=== PATIENT | male | born 2000 | race African-American/Black ===

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

== ENCOUNTER 2019-05-02 19:22 | Emergency (ER) | payer SELFPAY ==
[~2019-05-02] VITALS: Ht 180.3 cm; Wt 76.2 kg
[~2019-05-02 19:22] MED LIST changes: +LOMOTIL2.5 MG PO; +PHENERGAN25 MG/TAB PO
[2019-05-02 20:40] VITALS: BP 141/74
== END 2019-05-02 20:40 | disposition home or self-care (01) | DRG 866 ==
LOC: ED 19:22
DX: B34.9 Viral infection, unspecified (principal); F17.200 Nicotine dependence, unspecified, uncomplicated

== ENCOUNTER 2019-07-23 | Emergency (ER) | payer SELFPAY ==
[2019-07-23 16:14] LABS: HEMOGLOBIN 14.9 g/dl (14.0-18.0); MEAN CELL VOLUME 80.1 fL CALC (80.0-100.0); MEAN CORPUSCULAR HGB 26.5 pG CALC (26.0-32.0); MEAN CORPUSCULAR HGB CONC 33.1 g/L CALC (32.0-36.0); NEUT# 1.8 thou/uL (1.82-7.42); RED BLOOD COUNT 5.62 mill/uL (4.70-6.10)
[2019-07-23 16:15] LABS: URINE BILIRUBIN - DIPSTICK NEGATIVE (NEGATIVE); URINE BLOOD DIPSTICK NEGATIVE (NEGATIVE); URINE COLOR YELLOW; URINE GLUCOSE - DIPSTICK NEGATIVE (NEGATIVE); URINE KETONE NEGATIVE (NEGATIVE); URINE LEUK ESTERASE NEGATIVE (NEGATIVE); URINE NITRITE - DIPSTICK NEGATIVE (Negative); URINE PH 7.5 (4.5-8.0); URINE PROTEIN - DIPSTICK NEGATIVE (NEG-TRACE); URINE SPECIFIC GRAVITY <=1.005; URINE UROBILINOGEN - DIPSTICK 0.2 E.U./dL (0.2)
[2019-07-23 16:35] LABS: ALBUMIN 4.5 g/dL (3.2-5.0); ALKALINE PHOSPHATASE 74 u/l (38-126); ANION GAP 12 (6-22 (CALC)); BUN 7 mg/dL (9-20); BUN/CREATININE RATIO 6 (12-20 (CALC)); CARBON DIOXIDE 27 mmol/l (22-30); CHLORIDE 101 mmol/l (95-108); CREATININE 1.1 mg/dL (0.7-1.3); GFR > 60 ML/MIN (>=60 (CALC)); GFR FOR AFR.AMER. > 60 ML/MIN (>=60 (CALC)); LIPASE 49 u/l (23-300); SGOT/AST 28 u/l (17-59); SODIUM 136 mmol/l (137-146)
[2019-07-23 16:38] LABS: BILIRUBIN, TOTAL 0.6 mg/dL (0.0-1.4)
[2019-07-23] MEDS ORDERED: PEPCID20 MG PO (18:33)
[2019-07-23] MEDS ORDERED: ZOFRAN4 MG/TAB PO (18:33)
== END 2019-07-23 18:48 | disposition home or self-care (01) | DRG 392 ==
DX: R10.84 Generalized abdominal pain (principal); R11.2 Nausea with vomiting, unspecified; F17.200 Nicotine dependence, unspecified, uncomplicated
CPT/HCPCS: Q9967; S0164

== ENCOUNTER 2019-07-24 | Emergency (ER) | payer SELFPAY ==
[~2019-07-24] MED LIST changes: +PEPCID20 MG PO; +ZOFRAN4 MG/TAB PO
== END 2019-07-24 18:22 | disposition home or self-care (01) | DRG 392 ==
DX: K52.9 Noninfective gastroenteritis and colitis, unspecified (principal); F17.200 Nicotine dependence, unspecified, uncomplicated; T50.906A Underdosing of unspecified drugs, medicaments and biological substances, initial encounter; Z91.128 Patient's intentional underdosing of medication regimen for other reason

== ENCOUNTER 2020-11-25 09:57 | Observation (INO) | payer OTHER ==
[~2020-11-25] VITALS: Ht 182.9 cm; Wt 70.0 kg
--- NOTE | 2020-11-25 10:34 | NUR ---
DEPUTY REMAINS BEDSIDE WITH PATIENT, PATIENT REMAINS HANDCUFFED
[2020-11-25 10:51] LABS: HEMATOCRIT 44.6 % (39.0-50.0); HEMOGLOBIN 15.4 g/dl (14.0-18.0); IMMATURE GRANULOCYTES 0.2 % (0.0-5.0); MEAN CELL VOLUME 77.3 fL CALC (80.0-100.0); MEAN CORPUSCULAR HGB 26.7 pG CALC (26.0-32.0); MEAN CORPUSCULAR HGB CONC 34.5 g/dL CAL (32.0-36.0); NEUT# 3.38 thou/uL (1.82-7.42); RED BLOOD COUNT 5.77 mill/uL (4.70-6.10); RED CELL DISTRI WIDTH 12.9 % (11.5-15.5)
[2020-11-25 11:07] LABS: ALKALINE PHOSPHATASE 77 u/l (38-126); BILIRUBIN, TOTAL 0.6 mg/dL (0.0-1.4); BUN 7 mg/dL (9-20); BUN/CREATININE RATIO 6 (12-20 (CALC)); CHLORIDE 101 mmol/l (95-108); CREATININE 1.2 mg/dL (0.7-1.3); ETHYL ALCOHOL 0 mg/dl (0-30); GFR > 60 ML/MIN (>=60 (CALC)); GFR FOR AFR.AMER. > 60 ML/MIN (>=60 (CALC)); LIPASE 51 u/l (23-300); POTASSIUM 3.8 mmol/l (3.5-5.1); SODIUM 135 mmol/l (137-146); TOTAL PROTEIN 9.2 g/dL (6.3-8.2)
[2020-11-25 11:25] LABS: ANION GAP 21 (6-22 (CALC)); CARBON DIOXIDE 17 mmol/l (22-30); CPK 2160 u/l (52-200); SGOT/AST 70 u/l (17-59)
[2020-11-25 13:29] LABS: URINE BILIRUBIN - DIPSTICK NEGATIVE (NEGATIVE); URINE BLOOD DIPSTICK TRACE-INTACT (NEGATIVE); URINE COLOR YELLOW; URINE GLUCOSE - DIPSTICK NEGATIVE (NEGATIVE); URINE KETONE TRACE mg/dL (NEGATIVE); URINE LEUK ESTERASE NEGATIVE (NEGATIVE); URINE PH 6.5 (4.5-8.0); URINE PROTEIN - DIPSTICK TRACE mg/dL (NEG-TRACE); URINE UROBILINOGEN - DIPSTICK 0.2 E.U./dL (0.2)
[2020-11-25 13:31] LABS: URINE NITRITE - DIPSTICK NEGATIVE (Negative)
--- NOTE | 2020-11-25 14:55 | NUR ---
REPORT RECEIVED FROM SONI WHITEHEAD
--- NOTE | 2020-11-25 14:56 | NUR ---
REPORT CALLED TO FLOOR NURSE
--- NOTE | 2020-11-25 15:01 | NUR ---
PT ARRIVED TO MED/SURG ROOM 267 IN STABLE CONDITION VIA STRETCHER ACCOMPANIED BY SONI WHITEHEAD AND GUARD;PT AMBULATED TO BEDSIDE WITH A STEADY GAIT;WT AND VS OBTAINED BY ANITHA SCHRADER;PT A&O X3,ORIENTED TO ROOM AND CALL LIGHT SYSTEM;PT REPORTS RUNNING FROM THE POLICE AND HITTING A FENCE,THEN FEELING WEAK;PT REPORTS NECK PAIN RATING 5/10 ON THE PAIN SCALE ,PAIN SCALE AND REPORTING EDUCATED;ASSESSMENT COMPLETED;RESPIRATIONS EVEN AND UNLABORED ON RA,CLEAR LUNG SOUNDS;ABDOMEN SOFT ON PALPATION AND ACTIVE IN ALL 4 QUADRANTS,LAST BM 11/23/20;STRONG PEDAL PULSES WITH ANKLES SHACKLED TO THE BED;TELE MONITORING IN PLACE;#20G TO RAC FLUSHED AND PATENT,NS STARTED AT THIS TIME @ 150ML/HR;ALLERGY BAND APPLIED TO LEFT ARM;PT DENIES ANY ADDITIONAL NEEDS AND IS ENCOURAGED TO CALL FOR ASSISTANCE IF NEEDED;FALL PRECAUTIONS IN PLACE WITH BED IN THE LOWEST POSITION AND CALL LIGHT IN REACH;WILL CONTINUE TO MONITOR
[2020-11-25 15:08] VITALS: BP 152/95
--- NOTE | 2020-11-25 16:20 | NUR ---
PT RESTING IN SEMI FOWLERS POSITION WITH GUARD AT BEDSIDE;RESPIRATIONS EVEN AND UNLABORED ON RA;PT DENIES ANY CURRENT PAIN OR DISCOMFORTS;TELE MONITORING IN PLACE;IV SITE PATENT INFUSING NS WITH EASE PER ORDER;PT DENIES ANY ADDITIONAL NEEDS AND IS ENCOURAGED TO CALL FOR ASSISTANCE IF NEEDED;CALL LIGHT IN REACH;WILL CONTINUE TO MONITOR
[2020-11-25 19:06] VITALS: BP 117/69
--- NOTE | 2020-11-25 19:45 | NUR ---
PATIENT RESTING IN BED AT THIS TIME WITH EYES CLOSED. RESPS ARE EVEN AND UNLABORED. SIDERAILS ARE PADDED FOR SEIZURE PRECAUTIONS. TELE MONITOR IN PLACE-LAST READING WAS [id number]. IVF PATENT AND INFUSING VIA RAC AT 150CC/HR. SITE REMAINS HEALTHY AT THIS TIME. OZIEL AT BEDSIDE AND PATIENT LEFT ARM IS SHACKELED TO SIDERAIL. CALL LIGHT IN REACH. WILL CONT TO MONITOR.
--- NOTE | 2020-11-25 21:50 | NUR ---
PATIENT RESTING IN BED AT THIS TIME WITH OZIEL AT BEDSIDE. PATIENT SHACKELED TO BED RAIL WITH LEFT WRIST. PATIENT MEDICATED FOR C/O GENERALIZED/ABD PAIN 5/10 ON PAIN SCALE WITH MOTRIN 600MG PO ORDERED FOR PAIN. IVF NS PATENT AND INFUSING VIA RAC SITE AT 150CC/HR. SITE REMAINS HEALTHY. SIDERAILS PADDED FOR SEIZURE PRECAUTIONS. TELE MONITOR IN PLACE. SAFETY PRECAUTIONS REINFORCED. CALL LIGHT IN REACH. WILL CONT TO MONITOR.
--- NOTE | 2020-11-26 00:03 | NUR ---
PATIENT RESTING IN BED WITH EYES CLOSED. RESPS ARE EVEN AND UNLABORED. TELE MONITOR IN PLACE. IVF PATENT AND INFUSING VIA RAC SITE AT 150CC/HR. OZILE REMAINS AT BEDSIDE. PATIENT REMAINS SHACKELED TO BED RAIL. CALL LIGHT IN REACH. WILL CONT TO MONITOR.
[2020-11-26 00:43] VITALS: BP 105/63
--- NOTE | 2020-11-26 03:57 | NUR ---
PATIENT RESTING IN BED WITH SHEETS OVER HIS HEAD. RESPS ARE EVEN AND UNLABORED. OZIEL REMAINS AT BEDSIDE AND PATIENT REMAINS SHACKELED TO THE SIDERAIL. IVF PATENT AND INFUSING VIA RAC AT 150CC/HR. CALL LIGHT IN REACH. WILL CONT TO MONITOR.
[2020-11-26 04:35] VITALS: BP 122/68
[2020-11-26 04:58] LABS: HEMATOCRIT 40.9 % (39.0-50.0); HEMOGLOBIN 13.5 g/dl (14.0-18.0); MEAN CELL VOLUME 81.2 fL CALC (80.0-100.0); MEAN CORPUSCULAR HGB 26.8 pG CALC (26.0-32.0); RED BLOOD COUNT 5.04 mill/uL (4.70-6.10); RED CELL DISTRI WIDTH 13.2 % (11.5-15.5)
[2020-11-26 05:17] LABS: ANION GAP 8 (6-22 (CALC)); BUN 7 mg/dL (9-20); BUN/CREATININE RATIO 7 (12-20 (CALC)); CARBON DIOXIDE 23 mmol/l (22-30); CHLORIDE 110 mmol/l (95-108); CPK 872 u/l (52-200); CREATININE 1.1 mg/dL (0.7-1.3); GFR > 60 ML/MIN (>=60 (CALC)); GFR FOR AFR.AMER. > 60 ML/MIN (>=60 (CALC)); MAGNESIUM 1.9 mg/dL (1.6-2.3); SODIUM 137 mmol/l (137-146)
--- NOTE | 2020-11-26 07:00 | NUR ---
RECIEVED REPORT FROM SONI SHERIDAN
--- NOTE | 2020-11-26 07:13 | NUR ---
Chart reviewed. I agree with CP for the current POC and no other needs are identified
--- NOTE | 2020-11-26 08:01 | NUR ---
PT SLEEPING IN SEMI FOWLERS. PT AWAKENS TO SPEECH. PT IS A/O X3. ASSESSMENT AND VITALS COMPLETED. BP 120/72, HR 48, O2 100% ON ROOM AIR. RESPIRATIONS ARE EVEN AND UNLABORED WITH NO DISTRESS NOTED. LUNG SOUNDS ARE CLEAR. HEART RHYTHM IS NORMAL WITH TELE IN PLACE, SB PER ER MONITORING. BOWEL SOUNDS ARE ACTIVE. RADIAL AND PEDAL PULSES STRONG. #20G RAC INFUSING WITH IVF PER ORDER, SITE REMAINS HEALTHY AND PATENT. SKIN INTACT. LEFT WRIST SHACKLED TO BED. PT COMPLAINS OF 7/10 NECK PAIN, PT MEDICATED PER EMAR. PT DENIES OF ANY ADDITIONAL NEEDS AT THIS TIME. ALL SAFETY PRECAUTIONS ARE IN PLACE WITH CALL LIGHT IN REACH.GUARD X1 AT BEDSIDE. WILL CONTINUE TO MONITOR.
[2020-11-26 08:04] VITALS: BP 120/72
--- NOTE | 2020-11-26 10:25 | NUR ---
DR HUTCHINSON AT BEDSIDE
[2020-11-26 11:00] VITALS: BP 114/64
--- NOTE | 2020-11-26 11:52 | NUR ---
PT EDUCATED ON DC INSTRUCTIONS. PT VERBLAIZED UNDERSTANDING. IV REMOVED WITH CATHATER INTACT.TELE MONITORING REMOVED, ER NOTIFIED. DC INSTRCUTIONS PRESENTED TO THE GUARDS.TRANSPORTATION TO BE SET UP. WILL CONTINUE TO MONITOR.
--- NOTE | 2020-11-26 11:59 | NUR ---
Discharge instructions given. Patient verbalizes understanding of same. [facility] All belongings sent with pt. PT DC TO [facility] IN STABLE CONDITION WITH ALL BELONINGS AND DC INSTRUCTIONS ACCOMPAINED BY ERICK AND ALYSIA X2.
== END 2020-11-26 11:57 | DRG 558 ==
LOC: ED 09:57 → ED-I 11:15 → ED 11:41 → MS2 11:42
PROVIDERS: Family Medicine; Nurse Practitioner; ADMIT Internal Medicine; ATTEND Internal Medicine
DX: M62.82 Rhabdomyolysis (principal); M25.511 Pain in right shoulder; F17.200 Nicotine dependence, unspecified, uncomplicated; Y35.893A Legal intervention involving other specified means, suspect injured, initial encounter; Z20.822 Contact with and (suspected) exposure to COVID-19
CPT/HCPCS: G0378; J1650